=== PATIENT | male | born 1990 | race Caucasian/White ===

== ENCOUNTER 2021-03-17 08:33 | Outpatient (CLI) | payer BC | END 2021-03-17 08:34 | disposition home or self-care (01) | LOC: CSHMRI 08:33 | PROVIDERS: ATTEND Orthopaedic Surgery Hand Surgery | DX: S62.032D Displaced fracture of proximal third of navicular [scaphoid] bone of left wrist, subsequent encounter for fracture with routine healing (principal); S62.035D Nondisplaced fracture of proximal third of navicular [scaphoid] bone of left wrist, subsequent encounter for fracture with routine healing; M79.89 Other specified soft tissue disorders ==

== ENCOUNTER 2021-08-25 14:52 | Outpatient (CLI) | payer BC | END 2021-08-25 14:53 | disposition home or self-care (01) | LOC: CSHULT 14:52 | PROVIDERS: ATTEND Student in an Organized Health Care Education/Training Program | DX: R00.0 Tachycardia, unspecified (principal); I10 Essential (primary) hypertension; Z86.59 Personal history of other mental and behavioral disorders | CPT/HCPCS: 93306 ==